=== PATIENT | male | born 1990 | race Caucasian/White ===

== ENCOUNTER 2016-08-18 05:31 | Emergency (ER) | payer OTHER ==
[~2016-08-18] VITALS: Ht 180.3 cm; Wt 113.4 kg
[~2016-08-18 05:31] MED LIST: CIPROFLOXACIN500 MG PO; CYCLOBENZAPRINE10 MG PO; DITROPAN XL5 MG PO; FLOMAX0.4 MG PO; HYDROCODONE BIT1 T11 PO; MOTRIN800 MG PO; Motrin,Rufen800 MG PO; NORCO 325 MG-101 TAB PO; NORCO 325 MG-51 TAB PO; PERCOCET 325 MG1 TA2 PO; PERCOCET 325 MG1 TA5 PO; PERCOCET 325 MG1 TA7 PO; PYRIDIUM200 MG PO; TYLENOL500 MG PO; ULTRAM50 MG PO; URIBEL PO; VICO75300 PO; ZOFRAN ODT4 MG SL; Zofran4 MG PO
[2016-08-18 06:05] LABS: BASO % 0.4 % (0.0-1.0); EOS # 0.1 10*3/uL (0.0-0.4); EOS % 1.5 % (1.0-4.0); HEMATOCRIT 39.7 % (42.0-52.0); HEMOGLOBIN 13.6 g/dl (14.0-18.0); LYMPH # 1.9 10*3/uL (1.3-4.4); LYMPH % 27.7 % (27.0-41.0); MEAN CELL VOLUME 88.4 fl (80.0-94.0); MEAN CORPUSCULAR HGB 30.3 pg (27.0-31.0); MEAN CORPUSCULAR HGB CONC 34.3 g/dl (33.0-37.0); MEAN PLATELET VOLUME 8.8 fl (9.6-12.3); MONO # 0.5 10*3/uL (0.1-1.0); MONO % 7.8 % (3.0-9.0); NEUT # 4.3 10*3/uL (2.3-7.9); NEUT % 62.5 % (47.0-73.0); PLATELET COUNT AUTOMATED 281 10*3/uL (130-400); RED BLOOD COUNT 4.49 10*6/uL (4.50-5.90); RED CELL DISTRI WIDTH 12.5 % (0-14.5); WHITE BLOOD COUNT 6.8 10*3/uL (4.8-10.8)
[2016-08-18 06:18] LABS: ALBUMIN 3.3 gm/dl (3.1-4.5); ALKALINE PHOSPHATASE 72 U/L (45-117); BILIRUBIN, TOTAL 0.2 mg/dl (0.2-1.0); BUN 12 mg/dl (7-24); CARBON DIOXIDE 25 mmol/L (21-32); CHLORIDE 110 mmol/L (98-107); EST GLOM FILT AFRICAN AMERICAN > 60 ml/min; GLUCOSE 112 mg/dL (65-99); POTASSIUM 4.2 mmol/L (3.5-5.1); SGOT/AST 15 IU/L (3-35); SGPT/ALT 29 U/L (12-78); SODIUM 142 mmol/L (136-145)
[2016-08-18 06:29] LABS: BILIRUBIN NEGATIVE (NEGATIVE); BLOOD 3+ (NEGATIVE); CLARITY CLOUDY (CLEAR); COLOR YELLOW (YELLOW); GLUCOSE NEGATIVE (NEGATIVE); KETONE NEGATIVE (NEGATIVE); LEUKO ESTERASE NEGATIVE (NEGATIVE); NITRITE NEGATIVE (NEGATIVE); PROTEIN NEGATIVE (NEGATIVE); SPECIFIC GRAVITY >= 1.030 (1.005-1.030); UROBILINOGEN 0.2 E.U./dl (0.2-1.0)
[2016-08-18 06:43] LABS: BACTERIA 1+; MUCOUS TRACE; RBC TNTC rbc/hpf (0-2)
[2016-08-18 06:44] LABS: URINE REFLEX COMMENT YES (NO)
[2016-08-18] MEDS ORDERED: NAPROSYN500 MG PO (06:49)
[2016-08-18] MEDS ORDERED: BACTRIM DS 8001 TA1 PO (06:49)
[2016-08-18] MEDS ORDERED: FLOMAX0.4 MG PO (06:49)
[2016-08-18] MEDS ORDERED: PERCOCET 325 MG1 TA2 PO (06:49)
== END 2016-08-18 07:11 | disposition home or self-care (01) ==
LOC: ED 05:31
PROVIDERS: Emergency Medicine
DX: N23 Unspecified renal colic (principal); Z87.442 Personal history of urinary calculi

== ENCOUNTER 2016-10-21 14:23 | Emergency (ER) | payer OTHER ==
[~2016-10-21 14:23] MED LIST changes: +BACTRIM DS 8001 TA1 PO; +NAPROSYN500 MG PO
[2016-10-21] MEDS ORDERED: AMOXICILLIN500 M2 PO (15:32)
== END 2016-10-21 15:32 | disposition home or self-care (01) ==
LOC: ED 14:23
DX: S61.221A Laceration with foreign body of left index finger without damage to nail, initial encounter (principal); F17.200 Nicotine dependence, unspecified, uncomplicated; Z79.899 Other long term (current) drug therapy; W45.8XXA Other foreign body or object entering through skin, initial encounter; Y93.89 Activity, other specified; Y92.89 Other specified places as the place of occurrence of the external cause; Y99.9 Unspecified external cause status

== ENCOUNTER 2017-05-06 11:53 | Emergency (ER) | payer OTHER ==
[~2017-05-06] VITALS: Ht 180.3 cm; Wt 117.9 kg
[~2017-05-06 11:53] MED LIST changes: +AMOXICILLIN500 M2 PO
[2017-05-06 12:39] LABS: BASO % 0.2 % (0.0-1.0); EOS # 0.1 10*3/uL (0.0-0.4); EOS % 0.8 % (1.0-4.0); HEMATOCRIT 37.1 % (42.0-52.0); HEMOGLOBIN 13.2 g/dl (14.0-18.0); LYMPH # 1.6 10*3/uL (1.3-4.4); LYMPH % 18.6 % (27.0-41.0); MEAN CELL VOLUME 86.5 fl (80.0-94.0); MEAN CORPUSCULAR HGB 30.8 pg (27.0-31.0); MEAN CORPUSCULAR HGB CONC 35.6 g/dl (33.0-37.0); MEAN PLATELET VOLUME 8.9 fl (9.6-12.3); MONO # 0.5 10*3/uL (0.1-1.0); MONO % 5.3 % (3.0-9.0); NEUT # 6.6 10*3/uL (2.3-7.9); NEUT % 74.9 % (47.0-73.0); PLATELET COUNT AUTOMATED 307 10*3/uL (130-400); RED BLOOD COUNT 4.29 10*6/uL (4.50-5.90); RED CELL DISTRI WIDTH 12.3 % (0-14.5); WHITE BLOOD COUNT 8.8 10*3/uL (4.8-10.8)
[2017-05-06 12:40] LABS: BILIRUBIN NEGATIVE (NEGATIVE); BLOOD 3+ (NEGATIVE); CLARITY SL CLOUDY (CLEAR); COLOR YELLOW (YELLOW); GLUCOSE NEGATIVE (NEGATIVE); KETONE TRACE (NEGATIVE); LEUKO ESTERASE NEGATIVE (NEGATIVE); NITRITE NEGATIVE (NEGATIVE); UROBILINOGEN 0.2 E.U./dl (0.2-1.0)
[2017-05-06 12:51] LABS: RBC TNTC rbc/hpf (0-2)
[2017-05-06 12:54] LABS: ALBUMIN 3.5 gm/dl (3.1-4.5); ALKALINE PHOSPHATASE 83 U/L (45-117); BUN 17 mg/dl (7-24); CHLORIDE 108 mmol/L (98-107); CREATININE 1.13 mg/dL (0.70-1.30); SGOT/AST 12 IU/L (3-35); SGPT/ALT 38 U/L (12-78); SODIUM 141 mmol/L (136-145); TOTAL PROTEIN 7.4 gm/dL (6.4-8.2)
[2017-05-06] MEDS ORDERED: PERCOCET 5-3251 EACH PO (13:03)
[2017-05-06] MEDS ORDERED: ZOFRAN4 MG PO (13:03)
[2017-05-06] MEDS ORDERED: SEPTDS PO (13:03)
== END 2017-05-06 13:20 | disposition home or self-care (01) ==
LOC: ED 11:53
PROVIDERS: Nurse Practitioner Family
DX: N23 Unspecified renal colic (principal); R03.0 Elevated blood-pressure reading, without diagnosis of hypertension; F17.200 Nicotine dependence, unspecified, uncomplicated

== ENCOUNTER 2017-05-10 10:45 | Emergency (ER) | payer OTHER ==
[~2017-05-10] VITALS: Ht 180.3 cm; Wt 98.0 kg
[~2017-05-10 10:45] MED LIST changes: +PERCOCET 5-3251 EACH PO; +SEPTDS PO; +ZOFRAN4 MG PO
[2017-05-10 11:07] LABS: BILIRUBIN NEGATIVE (NEGATIVE); BLOOD 1+ (NEGATIVE); CLARITY CLEAR (CLEAR); COLOR YELLOW (YELLOW); GLUCOSE NEGATIVE (NEGATIVE); KETONE NEGATIVE (NEGATIVE); LEUKO ESTERASE NEGATIVE (NEGATIVE); NITRITE NEGATIVE (NEGATIVE); PH 5.5 (5.0-9.0); UROBILINOGEN 0.2 E.U./dl (0.2-1.0)
[2017-05-10 11:21] LABS: RBC 16-20 rbc/hpf (0-2)
[2017-05-10 11:39] LABS: BASO % 0.3 % (0.0-1.0); EOS # 0.1 10*3/uL (0.0-0.4); EOS % 1.1 % (1.0-4.0); HEMOGLOBIN 13.2 g/dl (14.0-18.0); LYMPH # 1.5 10*3/uL (1.3-4.4); LYMPH % 17.4 % (27.0-41.0); MEAN CELL VOLUME 87.6 fl (80.0-94.0); MEAN CORPUSCULAR HGB 30.4 pg (27.0-31.0); MEAN CORPUSCULAR HGB CONC 34.7 g/dl (33.0-37.0); MONO # 0.6 10*3/uL (0.1-1.0); MONO % 6.5 % (3.0-9.0); NEUT # 6.5 10*3/uL (2.3-7.9); NEUT % 74.5 % (47.0-73.0); PLATELET COUNT AUTOMATED 295 10*3/uL (130-400); RED BLOOD COUNT 4.34 10*6/uL (4.50-5.90); RED CELL DISTRI WIDTH 12.3 % (0-14.5); WHITE BLOOD COUNT 8.8 10*3/uL (4.8-10.8)
[2017-05-10 11:56] LABS: ALBUMIN 3.6 gm/dl (3.1-4.5); ALKALINE PHOSPHATASE 79 U/L (45-117); BUN 16 mg/dl (7-24); CHLORIDE 105 mmol/L (98-107); CREATININE 1.48 mg/dL (0.70-1.30); POTASSIUM 4.5 mmol/L (3.5-5.1); SGOT/AST 18 IU/L (3-35); SGPT/ALT 36 U/L (12-78); SODIUM 138 mmol/L (136-145); TOTAL PROTEIN 7.5 gm/dL (6.4-8.2)
[2017-05-10] MEDS ORDERED: MEDROL DOSEPAK4 MG PO (13:01)
[2017-05-10] MEDS ORDERED: FLOMAX0.4 MG PO (13:01)
[2017-05-10] MEDS ORDERED: MIRALAX POWDER17 G1 PO (13:01)
== END 2017-05-10 13:16 | disposition home or self-care (01) ==
LOC: ED 10:45
PROVIDERS: Nurse Practitioner Family
DX: N20.1 Calculus of ureter (principal); K59.00 Constipation, unspecified; F17.200 Nicotine dependence, unspecified, uncomplicated; Z87.442 Personal history of urinary calculi; Z79.899 Other long term (current) drug therapy

== ENCOUNTER 2019-02-23 16:40 | Emergency (ER) | payer OTHER ==
[~2019-02-23] VITALS: Ht 180.3 cm; Wt 117.9 kg
[~2019-02-23 16:40] MED LIST changes: +MEDROL DOSEPAK4 MG PO; +MIRALAX POWDER17 G1 PO
[2019-02-23 17:02] LABS: BASO % 0.3 % (0.0-1.0); EOS # 0.1 10*3/uL (0.0-0.4); EOS % 0.9 % (1.0-4.0); HEMATOCRIT 38.6 % (42.0-52.0); HEMOGLOBIN 13.3 g/dl (14.0-18.0); LYMPH # 2.4 10*3/uL (1.3-4.4); LYMPH % 20.8 % (27.0-41.0); MEAN CELL VOLUME 86.7 fl (80.0-94.0); MEAN CORPUSCULAR HGB 29.9 pg (27.0-31.0); MEAN CORPUSCULAR HGB CONC 34.5 g/dl (33.0-37.0); MEAN PLATELET VOLUME 9.1 fl (9.6-12.3); MONO # 0.8 10*3/uL (0.1-1.0); MONO % 6.8 % (3.0-9.0); NEUT # 8.3 10*3/uL (2.3-7.9); NEUT % 70.9 % (47.0-73.0); PLATELET COUNT AUTOMATED 323 10*3/uL (130-400); RED BLOOD COUNT 4.45 10*6/uL (4.50-5.90); RED CELL DISTRI WIDTH 12.1 % (0-14.5); WHITE BLOOD COUNT 11.7 10*3/uL (4.8-10.8)
[2019-02-23 17:17] LABS: ALBUMIN 3.3 gm/dl (3.1-4.5); ALKALINE PHOSPHATASE 102 U/L (45-117); BUN 11 mg/dl (7-24); CHLORIDE 106 mmol/L (98-107); CREATININE 1.08 mg/dL (0.70-1.30); LIPASE 179 U/L (73-393); POTASSIUM 4.1 mmol/L (3.5-5.1); SGOT/AST 27 IU/L (3-35); SGPT/ALT 50 U/L (12-78); SODIUM 137 mmol/L (136-145); TOTAL PROTEIN 8.2 gm/dL (6.4-8.2)
[2019-02-23 17:24] LABS: BILIRUBIN NEGATIVE (NEGATIVE); BLOOD NEGATIVE (NEGATIVE); CLARITY CLEAR (CLEAR); COLOR YELLOW (YELLOW); GLUCOSE NEGATIVE (NEGATIVE); KETONE NEGATIVE (NEGATIVE); LEUKO ESTERASE NEGATIVE (NEGATIVE); NITRITE NEGATIVE (NEGATIVE); SPECIFIC GRAVITY 1.025 (1.005-1.030); UROBILINOGEN 0.2 E.U./dl (0.2-1.0)
[2019-02-23 17:31] LABS: MUCOUS 1+; WBC 0-2 wbc/hpf (0-5)
[2019-02-23] MEDS ORDERED: FLOMAX0.4 MG PO (19:09)
[2019-02-23] MEDS ORDERED: KETOROLAC10 MG PO (19:09)
[2019-02-23] MEDS ORDERED: ZOFRAN4 MG PO (19:09)
[2019-02-23] MEDS ORDERED: SEPTDS PO (19:12)
== END 2019-02-23 19:50 | disposition home or self-care (01) ==
LOC: ED 16:40
PROVIDERS: Nurse Practitioner Family
DX: N20.0 Calculus of kidney (principal); R30.0 Dysuria; Z79.899 Other long term (current) drug therapy

== ENCOUNTER 2019-10-20 16:09 | Emergency (ER) | payer OTHER ==
[~2019-10-20] VITALS: Ht 180.3 cm; Wt 120.2 kg
[~2019-10-20 16:09] MED LIST changes: +KETOROLAC10 MG PO
[2019-10-20] MEDS ORDERED: ZYRTEC10 M3 PO (16:47)
[2019-10-20] MEDS ORDERED: AMOXICILLIN500 M2 PO (16:47)
[2019-10-20] MEDS ORDERED: FLONASE ALLERG9.9 ML NAS (16:47)
== END 2019-10-20 17:02 | disposition home or self-care (01) ==
LOC: ED 16:09
DX: H66.92 Otitis media, unspecified, left ear (principal); J01.90 Acute sinusitis, unspecified; F17.200 Nicotine dependence, unspecified, uncomplicated; Z79.899 Other long term (current) drug therapy

== ENCOUNTER 2020-04-05 00:15 | Emergency (ER) | payer OTHER ==
[~2020-04-05] VITALS: Ht 180.3 cm; Wt 117.9 kg
[~2020-04-05 00:15] MED LIST changes: +FLONASE ALLERG9.9 ML NAS; +ZYRTEC10 M3 PO
== END 2020-04-05 02:16 | disposition left against medical advice (07) ==
LOC: ED 00:15
DX: R10.31 Right lower quadrant pain (principal); M54.5 Low back pain; Z53.21 Procedure and treatment not carried out due to patient leaving prior to being seen by health care provider

== ENCOUNTER → 2020-05-27 | Outpatient (CLI) | payer OTHER | END | disposition home or self-care (01) | LOC: RAD 07:57 | PROVIDERS: ATTEND Chiropractor | DX: M54.32 Sciatica, left side (principal); M54.5 Low back pain ==

== ENCOUNTER 2020-07-26 01:49 | Emergency (ER) | payer OTHER ==
[2020-07-26 02:35] LABS: BASO % 0.3 % (0.0-1.0); EOS # 0.1 10*3/uL (0.0-0.4); EOS % 1.6 % (1.0-4.0); HEMATOCRIT 37.1 % (42.0-52.0); LYMPH # 2.5 10*3/uL (1.3-4.4); MEAN CORPUSCULAR HGB 30.2 pg (27.0-31.0); MEAN PLATELET VOLUME 8.9 fl (9.6-12.3); MONO # 0.5 10*3/uL (0.1-1.0); MONO % 5.4 % (3.0-9.0); NEUT # 5.7 10*3/uL (2.3-7.9); NEUT % 64.4 % (47.0-73.0); PLATELET COUNT AUTOMATED 318 10*3/uL (130-400); RED BLOOD COUNT 4.17 10*6/uL (4.50-5.90); RED CELL DISTRI WIDTH 12.7 % (0-14.5); WHITE BLOOD COUNT 8.9 10*3/uL (4.8-10.8)
[2020-07-26 02:40] LABS: BILIRUBIN Negative (Negative); BLOOD 2+ (Negative); CLARITY Clear (Clear); COLOR Yellow (Yellow); GLUCOSE Negative (Negative); KETONE Negative (Negative); LEUKO ESTERASE Negative (Negative); NITRITE Negative (Negative); UROBILINOGEN 0.2 E.U./dl (0.0-1.0)
[2020-07-26 02:51] LABS: BACTERIA TRACE; EPITHELIAL CELLS 0-2; RBC 16-20 rbc/hpf (0-2)
[2020-07-26 02:51] LABS: ALBUMIN 3.5 gm/dl (3.1-4.5); ALKALINE PHOSPHATASE 88 U/L (45-117); BUN 18 mg/dl (7-24); CHLORIDE 110 mmol/L (98-107); SGOT/AST 11 IU/L (3-35); SGPT/ALT 29 U/L (12-78); SODIUM 140 mmol/L (136-145); TOTAL PROTEIN 7.3 gm/dL (6.4-8.2)
[2020-07-26] MEDS ORDERED: PERCOCET 5-3251 EACH PO (05:25)
== END 2020-07-26 05:42 | disposition home or self-care (01) ==
LOC: ED 01:49
PROVIDERS: Emergency Medicine
DX: N13.2 Hydronephrosis with renal and ureteral calculous obstruction (principal); R11.2 Nausea with vomiting, unspecified; Z87.442 Personal history of urinary calculi

== ENCOUNTER → 2020-08-05 | Outpatient (CLI) | payer OTHER ==
[2020-08-05 15:39] LABS: BASO % 0.3 % (0.0-1.0); EOS # 0.1 10*3/uL (0.0-0.4); EOS % 1.3 % (1.0-4.0); HEMATOCRIT 41.2 % (42.0-52.0); LYMPH # 2.4 10*3/uL (1.3-4.4); MEAN CORPUSCULAR HGB CONC 33.7 g/dl (33.0-37.0); MEAN PLATELET VOLUME 8.9 fl (9.6-12.3); MONO # 0.5 10*3/uL (0.1-1.0); MONO % 5.8 % (3.0-9.0); NEUT # 5.7 10*3/uL (2.3-7.9); NEUT % 65.4 % (47.0-73.0); PLATELET COUNT AUTOMATED 421 10*3/uL (130-400); RED BLOOD COUNT 4.63 10*6/uL (4.50-5.90); RED CELL DISTRI WIDTH 12.2 % (0-14.5); WHITE BLOOD COUNT 8.8 10*3/uL (4.8-10.8)
[2020-08-05 15:43] LABS: BILIRUBIN Negative (Negative); BLOOD 1+ (Negative); CLARITY Clear (Clear); COLOR Yellow (Yellow); GLUCOSE Negative (Negative); KETONE Negative (Negative); LEUKO ESTERASE Trace (Negative); NITRITE Negative (Negative); SPECIFIC GRAVITY 1.025 (1.001-1.030); UROBILINOGEN 0.2 E.U./dl (0.0-1.0)
[2020-08-05 16:17] LABS: ALBUMIN 4.1 gm/dl (3.1-4.5); ALKALINE PHOSPHATASE 99 U/L (45-117); BUN 15 mg/dl (7-24); CHLORIDE 107 mmol/L (98-107); CREATININE 0.98 mg/dL (0.70-1.30); SGOT/AST 12 IU/L (3-35); SGPT/ALT 35 U/L (12-78); SODIUM 137 mmol/L (136-145); T3 UPTAKE 35 % (31-39); THYROXINE (T4) TOTAL 8.2 ug/dl (4.5-12.1); TOTAL PROTEIN 8.7 gm/dL (6.4-8.2)
[2020-08-05 17:01] LABS: BACTERIA TRACE; RBC 21-30 rbc/hpf (0-2)
== END | disposition home or self-care (01) ==
LOC: LAB 15:12
PROVIDERS: ATTEND Urology
DX: N20.0 Calculus of kidney (principal); R31.9 Hematuria, unspecified

== ENCOUNTER → 2020-08-07 | Outpatient (CLI) | payer OTHER ==
[2020-08-19 22:06] LABS: BUSHITE 2.09 ratio (0.00-3.00); CALCIUM OXALATE 9.89 ratio (0.00-6.00); CALCIUM, URINE 25.2 mg/dL (Not Estab.); CALCIUM, URINE 340.2 mg/24 hr (100.0-300.0); CITRIC ACID (CITRATE) 1219 mg/24 hr (320-1240); CREATININE, URINE 2551.5 mg/24 hr (1000.0-2000.0); MAGNESIUM, URINE 6.4 mg/dL (Not Estab.); MONOSODIUM URATE 9.29 ratio (0.00-4.00); OSMOLALITY, URINE 911 (300-900); SODIUM, URINE 166 mmol/L (Not Estab.); SODIUM, URINE 224 (58-337); STRUVITE 0.01 ratio (0.00-1.00); URIC ACID 3.54 ratio (0.00-1.20); pH 24 HR URINE 5.8 (.)
== END | disposition home or self-care (01) ==
LOC: LAB 15:43
PROVIDERS: ATTEND Urology
DX: N20.0 Calculus of kidney (principal); R31.9 Hematuria, unspecified

== ENCOUNTER 2022-03-26 17:52 | Emergency (ER) | payer OTHER ==
[~2022-03-26] VITALS: Ht 180.3 cm; Wt 122.5 kg
[2022-03-26 18:12] LABS: BILIRUBIN Negative (Negative); BLOOD 3+ (Negative); CLARITY Cloudy (Clear); COLOR Yellow (Yellow); GLUCOSE Negative (Negative); KETONE Trace (Negative); LEUKO ESTERASE Trace (Negative); NITRITE Negative (Negative); SPECIFIC GRAVITY >= 1.030 (1.001-1.030)
[2022-03-26 18:27] LABS: BACTERIA 1+; RBC TNTC rbc/hpf (0-2)
[2022-03-26] MEDS ORDERED: FLOMAX0.4 MG PO (18:38)
[2022-03-26] MEDS ORDERED: HYDROCODONE-AC1 EAC1 PO (18:38)
[2022-03-26] MEDS ORDERED: ONDANSETRON HYDR4 M1 PO (18:38)
== END 2022-03-26 18:45 | disposition home or self-care (01) ==
LOC: ED 17:52
PROVIDERS: Student in an Organized Health Care Education/Training Program
DX: N13.2 Hydronephrosis with renal and ureteral calculous obstruction (principal); Z87.442 Personal history of urinary calculi

== ENCOUNTER 2022-04-20 08:01 | Emergency (ER) | payer OTHER ==
[~2022-04-20] VITALS: Ht 180.3 cm; Wt 122.5 kg
[~2022-04-20 08:01] MED LIST changes: +HYDROCODONE-AC1 EAC1 PO; +ONDANSETRON HYDR4 M1 PO
[2022-04-20] MEDS ORDERED: CEPHALEXIN500 M1 PO (08:59)
== END 2022-04-20 09:12 | disposition home or self-care (01) ==
LOC: ED 08:01
DX: S61.211A Laceration without foreign body of left index finger without damage to nail, initial encounter (principal); Z79.899 Other long term (current) drug therapy; W29.3XXA Contact with powered garden and outdoor hand tools and machinery, initial encounter; Y93.89 Activity, other specified; Y92.89 Other specified places as the place of occurrence of the external cause; Y99.9 Unspecified external cause status

== ENCOUNTER 2022-05-12 15:00 | Emergency (ER) | payer OTHER ==
[~2022-05-12] VITALS: Ht 180.3 cm; Wt 124.7 kg
[~2022-05-12 15:00] MED LIST changes: +CEPHALEXIN500 M1 PO
[2022-05-12] MEDS ORDERED: PREDNISONE20 M1 PO (21:56)
[2022-05-12] MEDS ORDERED: METHOCARBAMOL500 M1 PO (21:56)
== END 2022-05-12 23:36 | disposition home or self-care (01) ==
LOC: ED 15:00
DX: M54.16 Radiculopathy, lumbar region (principal); Z90.89 Acquired absence of other organs

== ENCOUNTER 2022-09-20 11:09 | Emergency (ER) | payer OTHER ==
[~2022-09-20] VITALS: Ht 180.3 cm; Wt 118.4 kg
[~2022-09-20 11:09] MED LIST changes: +METHOCARBAMOL500 M1 PO; +PREDNISONE20 M1 PO
== END 2022-09-20 15:12 | disposition home or self-care (01) ==
LOC: ED 11:09
DX: J02.9 Acute pharyngitis, unspecified (principal); I48.91 Unspecified atrial fibrillation; Z87.442 Personal history of urinary calculi; Z90.89 Acquired absence of other organs; Z98.890 Other specified postprocedural states

== ENCOUNTER 2022-09-23 16:35 | Emergency (ER) | payer OTHER ==
[~2022-09-23] VITALS: Ht 180.3 cm; Wt 120.2 kg
[2022-09-23 17:37] LABS: BASO % 0.4 % (0.0-1.0); EOS % 0.3 % (1.0-4.0); HEMATOCRIT 40.2 % (42.0-52.0); LYMPH # 3.3 10*3/uL (1.3-4.4); LYMPH % 30.1 % (27.0-41.0); MEAN CELL VOLUME 86.1 fl (80.0-94.0); MEAN CORPUSCULAR HGB CONC 34.8 g/dl (33.0-37.0); MONO # 0.6 10*3/uL (0.1-1.0); MONO % 5.7 % (3.0-9.0); NEUT # 6.9 10*3/uL (2.3-7.9); NEUT % 63.1 % (47.0-73.0); PLATELET COUNT AUTOMATED 351 10*3/uL (130-400); RED BLOOD COUNT 4.67 10*6/uL (4.50-5.90); RED CELL DISTRI WIDTH 12.4 % (0-14.5); WHITE BLOOD COUNT 10.8 10*3/uL (4.8-10.8)
[2022-09-23 17:47] LABS: ACT PARTIAL THROMBO TIME 26.2 SECONDS (20.0-32.1)
[2022-09-23 17:58] LABS: ALKALINE PHOSPHATASE 103 U/L (46-116); BUN 12 mg/dl (9-23); CHLORIDE 103 mmol/L (98-107); POTASSIUM 3.3 mmol/L (3.4-5.1); SGPT/ALT 27 U/L (10-49); TOTAL PROTEIN 7.7 gm/dL (6.0-8.0)
[2022-09-23] MEDS ORDERED: VISTARIL25 MG PO (19:14)
== END 2022-09-23 19:29 | disposition home or self-care (01) ==
LOC: ED 16:35
PROVIDERS: Emergency Medicine
DX: F41.9 Anxiety disorder, unspecified (principal); Z90.89 Acquired absence of other organs

== ENCOUNTER 2022-10-08 07:54 | Emergency (ER) | payer OTHER ==
[~2022-10-08] VITALS: Ht 180.3 cm; Wt 120.2 kg
[~2022-10-08 07:54] MED LIST changes: +VISTARIL25 MG PO
[2022-10-08] MEDS ORDERED: CYCLOBENZAPRINE5 M3 PO (08:17)
[2022-10-08] MEDS ORDERED: TRAMADOL HCL50 MG PO (08:17)
== END 2022-10-08 08:44 | disposition home or self-care (01) ==
LOC: ED 07:54
DX: M54.42 Lumbago with sciatica, left side (principal)

== ENCOUNTER 2022-12-16 18:39 | Emergency (ER) | payer OTHER ==
[~2022-12-16] VITALS: Ht 180.3 cm; Wt 120.2 kg
[~2022-12-16 18:39] MED LIST changes: +CYCLOBENZAPRINE5 M3 PO; +TRAMADOL HCL50 MG PO
[2022-12-16 19:05] LABS: BASO % 0.4 % (0.0-1.0); EOS # 0.1 10*3/uL (0.0-0.4); EOS % 1.1 % (1.0-4.0); HEMATOCRIT 38.3 % (42.0-52.0); LYMPH # 1.9 10*3/uL (1.3-4.4); LYMPH % 26.3 % (27.0-41.0); MEAN CELL VOLUME 87.2 fl (80.0-94.0); MEAN CORPUSCULAR HGB 30.1 pg (27.0-31.0); MEAN CORPUSCULAR HGB CONC 34.5 g/dl (33.0-37.0); MONO # 0.4 10*3/uL (0.1-1.0); MONO % 5.3 % (3.0-9.0); NEUT # 4.8 10*3/uL (2.3-7.9); NEUT % 66.8 % (47.0-73.0); PLATELET COUNT AUTOMATED 330 10*3/uL (130-400); RED BLOOD COUNT 4.39 10*6/uL (4.50-5.90); RED CELL DISTRI WIDTH 12.4 % (0-14.5); WHITE BLOOD COUNT 7.1 10*3/uL (4.8-10.8)
[2022-12-16 19:22] LABS: ALKALINE PHOSPHATASE 85 U/L (46-116); BUN 12 mg/dl (9-23); CHLORIDE 108 mmol/L (98-107); POTASSIUM 3.7 mmol/L (3.4-5.1); SGPT/ALT 19 U/L (10-49); TOTAL PROTEIN 7.1 gm/dL (6.0-8.0)
[2022-12-16] MEDS ORDERED: HYDROCODONE-AC1 EACH PO (20:29)
[2022-12-16] MEDS ORDERED: FLOMAX0.4 MG PO (20:29)
[2022-12-16] MEDS ORDERED: ONDANSETRON4 MG SL (20:29)
[2022-12-16] MEDS ORDERED: KETOROLAC10 MG PO (20:29)
[2022-12-16 20:34] LABS: BILIRUBIN Negative (Negative); BLOOD Negative (Negative); CLARITY Clear (Clear); COLOR Yellow (Yellow); GLUCOSE Negative (Negative); KETONE Negative (Negative); LEUKO ESTERASE Negative (Negative); NITRITE Negative (Negative); PH 6.5 (4.5-8.0)
[2022-12-16 20:50] LABS: BACTERIA 1+; MUCOUS 1+
== END 2022-12-16 20:53 | disposition home or self-care (01) ==
LOC: ED 18:39
PROVIDERS: Nurse Practitioner Family
DX: N20.0 Calculus of kidney (principal); Z90.89 Acquired absence of other organs; Z98.890 Other specified postprocedural states

== ENCOUNTER 2023-04-22 23:12 | Emergency (ER) | payer OTHER ==
[~2023-04-22] VITALS: Ht 172.7 cm; Wt 77.1 kg
[~2023-04-22 23:12] MED LIST changes: +HYDROCODONE-AC1 EACH PO; +ONDANSETRON4 MG SL
[2023-04-22 23:55] LABS: BASO % 0.4 % (0.0-1.0); EOS # 0.1 10*3/uL (0.0-0.4); EOS % 0.9 % (1.0-4.0); HEMATOCRIT 38.8 % (42.0-52.0); LYMPH # 2.1 10*3/uL (1.3-4.4); LYMPH % 25.9 % (27.0-41.0); MEAN CELL VOLUME 85.1 fl (80.0-94.0); MEAN CORPUSCULAR HGB 29.4 pg (27.0-31.0); MEAN CORPUSCULAR HGB CONC 34.5 g/dl (33.0-37.0); MONO # 0.5 10*3/uL (0.1-1.0); MONO % 6.6 % (3.0-9.0); NEUT # 5.3 10*3/uL (2.3-7.9); NEUT % 65.9 % (47.0-73.0); PLATELET COUNT AUTOMATED 323 10*3/uL (130-400); RED BLOOD COUNT 4.56 10*6/uL (4.50-5.90); RED CELL DISTRI WIDTH 12.6 % (0-14.5)
[2023-04-23 00:18] LABS: ALKALINE PHOSPHATASE 95 U/L (46-116); BUN 16 mg/dl (9-23); CHLORIDE 105 mmol/L (98-107); LIPASE 36 U/L (12-53); POTASSIUM 4.1 mmol/L (3.4-5.1); SGPT/ALT 31 U/L (5-49); TOTAL PROTEIN 7.4 gm/dL (6.0-8.0)
[2023-04-23] MEDS ORDERED: FLOMAX0.4 MG PO (00:46)
[2023-04-23] MEDS ORDERED: MELOXICAM15 MG PO (00:46)
== END 2023-04-23 00:53 | disposition home or self-care (01) ==
LOC: ED 23:12
PROVIDERS: Internal Medicine
DX: N20.2 Calculus of kidney with calculus of ureter (principal); Z90.89 Acquired absence of other organs; Z98.890 Other specified postprocedural states

== ENCOUNTER 2023-05-10 23:16 | Emergency (ER) | payer OTHER ==
[~2023-05-10] VITALS: Ht 180.3 cm; Wt 120.2 kg
[~2023-05-10 23:16] MED LIST changes: +MELOXICAM15 MG PO
[2023-05-11 00:17] LABS: BASO % 0.6 % (0.0-1.0); EOS # 0.1 10*3/uL (0.0-0.4); EOS % 1.1 % (1.0-4.0); HEMATOCRIT 38.9 % (42.0-52.0); LYMPH # 2.4 10*3/uL (1.3-4.4); LYMPH % 32.5 % (27.0-41.0); MEAN CELL VOLUME 87.4 fl (80.0-94.0); MEAN CORPUSCULAR HGB 29.2 pg (27.0-31.0); MEAN CORPUSCULAR HGB CONC 33.4 g/dl (33.0-37.0); MEAN PLATELET VOLUME 9.1 fl (9.6-12.3); MONO # 0.4 10*3/uL (0.1-1.0); MONO % 5.4 % (3.0-9.0); NEUT # 4.4 10*3/uL (2.3-7.9); NEUT % 60.3 % (47.0-73.0); PLATELET COUNT AUTOMATED 344 10*3/uL (130-400); RED BLOOD COUNT 4.45 10*6/uL (4.50-5.90); RED CELL DISTRI WIDTH 12.2 % (0-14.5); WHITE BLOOD COUNT 7.3 10*3/uL (4.8-10.8)
[2023-05-11 00:45] LABS: ALKALINE PHOSPHATASE 91 U/L (46-116); BUN 16 mg/dl (9-23); CHLORIDE 105 mmol/L (98-107); LIPASE 40 U/L (12-53); POTASSIUM 3.9 mmol/L (3.4-5.1); SGPT/ALT 48 U/L (5-49); TOTAL PROTEIN 7.1 gm/dL (6.0-8.0)
[2023-05-11 01:09] LABS: BILIRUBIN Negative (Negative); BLOOD Trace-Intact (Negative); CLARITY Clear (Clear); COLOR Yellow (Yellow); GLUCOSE Negative (Negative); KETONE Trace (Negative); LEUKO ESTERASE Negative (Negative); NITRITE Negative (Negative); SPECIFIC GRAVITY >= 1.030 (1.001-1.030)
[2023-05-11 01:32] LABS: BACTERIA TRACE; MUCOUS 1+; RBC 16-20 rbc/hpf (0-2)
[2023-05-11] MEDS ORDERED: MELOXICAM15 MG PO (01:49)
[2023-05-11] MEDS ORDERED: FLOMAX0.4 MG PO (01:49)
== END 2023-05-11 01:56 | disposition home or self-care (01) ==
LOC: ED 23:16
PROVIDERS: Internal Medicine
DX: N20.0 Calculus of kidney (principal); Z90.89 Acquired absence of other organs; Z98.890 Other specified postprocedural states; Z87.891 Personal history of nicotine dependence; Z87.442 Personal history of urinary calculi

== ENCOUNTER 2024-07-21 18:58 | Emergency (ER) | payer OTHER ==
[~2024-07-21] VITALS: Wt 122.5 kg
[2024-07-21] MEDS ORDERED: Tdap Vaccine 0.5 ML SYR (Adult Vaccine) IM ONE (19:20)
[2024-07-21] MEDS ORDERED: Lidocaine Hydrochloride 2 ML AMP SC ONE (19:20)
== END 2024-07-21 19:47 | disposition home or self-care (01) ==
LOC: ED 18:58
DX: S61.215A Laceration without foreign body of left ring finger without damage to nail, initial encounter (principal); Z87.442 Personal history of urinary calculi; Z98.890 Other specified postprocedural states; Z90.89 Acquired absence of other organs; W26.0XXA Contact with knife, initial encounter; Y93.89 Activity, other specified; Y92.009 Unspecified place in unspecified non-institutional (private) residence as the place of occurrence of the external cause; Y99.8 Other external cause status